=== PATIENT | female | born 2000 | race Caucasian/White ===

== ENCOUNTER 2022-10-28 20:48 | Emergency (ER) | payer OTHER ==
[~2022-10-28] VITALS: Ht 165.1 cm; Wt 50.3 kg
[2022-10-28 21:04] VITALS: BP 100/48
--- NOTE | 2022-10-28 21:23 | NUR ---
PT TO 11
--- NOTE | 2022-10-28 21:51 | NUR ---
Pt is here complaning for rectal pain. She said she been having constipation and she been told by dr from urgent care that she has hemmoroid. She was prescribed the lotion to help and she said she used it for 2 weeks and no longer use it. She has pain 8/.
--- NOTE | 2022-10-28 22:28 | NUR ---
Female [employer] accompanied female patient for Rectal Exam.
[2022-10-28] MEDS ORDERED: HYDR-2734 TP (22:38)
[2022-10-28 23:00] VITALS: BP 102/48
--- NOTE | 2022-10-28 23:00 | NUR ---
Patient discharged with v/s stable. Written and verbal after care instructions given and explained. Patient alert, oriented and verbalized understanding of instructions. Ambulatory with steady gait. All questions addressed prior to discharge. ID band removed. Patient advised to follow up with PMD. Rx of Hydrocortisone cream given. Patient educated on indication of medication including possible reaction and side effects. Opportunity to ask questions provided and answered.
== END 2022-10-28 23:00 | disposition home or self-care (01) ==
LOC: MED 20:48
DX: K64.4 Residual hemorrhoidal skin tags (principal)
CPT/HCPCS: 99282; 99283

== ENCOUNTER 2023-04-11 18:21 | Emergency (ER) | payer OTHER ==
[~2023-04-11] VITALS: Ht 165.1 cm; Wt 53.5 kg
[~2023-04-11 18:21] MED LIST: HYDR-2734 TP
[2023-04-11 18:44] VITALS: BP 97/46; PULSE 80; RESP 20; TEMP 97.8
--- NOTE | 2023-04-11 20:25 | NUR ---
PT AMBULATED TO BED 01.
--- NOTE | 2023-04-11 20:30 | NUR ---
SPOKE WITH PATIENT AT BEDSIDE WHO COMPLAINS OF PELVIC PAIN S/P SEXUAL INTERCOURSE ON FRIDAY. PATIENT DENIES VAGINAL BLEEDING, SWELLING, AND/OR TRAUMA. DENIES ANY PAST MEDICAL HISTORY DENIES ANY PRESCRIPTION MEDICATIONS
[2023-04-11] MEDS ORDERED: FLUC150T PO (21:13)
[2023-04-11] MEDS ORDERED: IBUP-2213 PO (21:13)
--- NOTE | 2023-04-11 21:34 | NUR ---
Patient discharged. Written and verbal after care instructions given and explained. Patient alert, oriented and verbalized understanding of instructions. Ambulatory with steady gait. All questions addressed prior to discharge. ID band removed. Patient advised to follow up with PMD. Rx of Diflucan and Ibuprofen given. Patient educated on indication of medication including possible reaction and side effects. Opportunity to ask questions provided and answered.
== END 2023-04-11 21:34 | disposition home or self-care (01) ==
LOC: MED 18:21
DX: R10.2 Pelvic and perineal pain (principal); Z79.899 Other long term (current) drug therapy
CPT/HCPCS: 81002; 81025; 99283

== ENCOUNTER 2023-05-02 23:15 | Emergency (ER) | payer OTHER ==
[~2023-05-02] VITALS: Ht 165.1 cm; Wt 53.5 kg
[~2023-05-02 23:15] MED LIST changes: +FLUC150T PO; +IBUP-2213 PO
[2023-05-02 23:19] VITALS: BP 120/55; PULSE 66; RESP 17; TEMP 98; O2SAT 99
--- NOTE | 2023-05-02 23:22 | NUR ---
TO LOBBY A/W BED AMBULATORY
--- NOTE | 2023-05-02 23:36 | NUR ---
URINE WALKED TO LAB.
[2023-05-02 23:38] LABS: APPEARANCE,URINE CLEAR (CLEAR); BILIRUBIN,URINE NEGATIVE (NEGATIVE); BLOOD, URINE NEGATIVE (NEGATIVE); COLOR,URINE YELLOW (YELLOW); LEUKOCYTE ESTERASE ,URINE NEGATIVE (NEGATIVE); NITRITE, URINE NEGATIVE (NEGATIVE); UGLUCOSE NEGATIVE (NEGATIVE)
[2023-05-03] MEDS ORDERED: IBUPROFEN 600 MG TAB PO ONE
[2023-05-03] MEDS ORDERED: IBUPROFEN 600 MG TAB ONE (01:08)
--- NOTE | 2023-05-03 03:27 | NUR ---
PATIENT ELOPED FROM FACILITY. DISCHARGE INSTRUCTIONS NOT GIVEN TO PATIENT. DR. DELEON NOTIFIED.
--- NOTE | 2023-05-03 03:27 | NUR ---
Note ashley in ED - 05/03/23 at 0340 by CORIE PER ADMITTING, PT LEFT WITHOUT BEING SEEN
== END 2023-05-03 03:27 | disposition left against medical advice (07) ==
LOC: MED 23:15
DX: N83.201 Unspecified ovarian cyst, right side (principal); Z79.899 Other long term (current) drug therapy; Z90.49 Acquired absence of other specified parts of digestive tract; Z98.890 Other specified postprocedural states
CPT/HCPCS: 76856; 81003; 81025; 93976; 99284; Q0092

== ENCOUNTER 2023-06-18 05:05 | Emergency (ER) | payer OTHER ==
[~2023-06-18] VITALS: Ht 165.1 cm; Wt 54.4 kg
[2023-06-18 05:11] VITALS: BP 96/52; PULSE 70; RESP 18; TEMP 97.8; O2SAT 99
[2023-06-18] MEDS ORDERED: NACL 0.9% 1,000 ML IV ONE (06:10)
[2023-06-18] MEDS ORDERED: KETOROLAC 30 MG/ML VIAL IVP ONE (06:35)
[2023-06-18 07:23] VITALS: O2SAT 99
[2023-06-18] MEDS ORDERED: IBUP-2213 PO (07:35)
[2023-06-18] MEDS ORDERED: ONDA8TAB87 PO (07:35)
[2023-06-18 07:47] VITALS: BP 110/61; PULSE 64; RESP 14; TEMP 97.9; O2SAT 100
== END 2023-06-18 07:47 | disposition home or self-care (01) ==
LOC: MED 05:05
DX: R10.9 Unspecified abdominal pain (principal); R11.2 Nausea with vomiting, unspecified; R19.7 Diarrhea, unspecified; K59.00 Constipation, unspecified; Z79.899 Other long term (current) drug therapy
CPT/HCPCS: 81002; 81025; 96361; 96374; 99283; J1885; J7030

== ENCOUNTER 2023-12-27 16:19 | Emergency (ER) | payer OTHER ==
[~2023-12-27] VITALS: Ht 165.1 cm; Wt 55.8 kg
[~2023-12-27 16:19] MED LIST changes: +ONDA8TAB87 PO
[2023-12-27 16:30] VITALS: BP 102/67; PULSE 70; RESP 16; TEMP 98; O2SAT 99
[2023-12-27] MEDS: IBUPROFEN 600 MG TAB PO ONE (17:49)
[2023-12-27] MEDS ORDERED: IBUP-2213 PO (19:06)
[2023-12-27 19:20] VITALS: BP 111/54; PULSE 75; RESP 16; TEMP 97.4; O2SAT 99
== END 2023-12-27 19:25 | disposition home or self-care (01) ==
LOC: MED 16:19
DX: R07.9 Chest pain, unspecified (principal); Z79.899 Other long term (current) drug therapy
CPT/HCPCS: 71045; 81025; 93005; 99283

== ENCOUNTER 2024-07-15 16:25 | Emergency (ER) | payer OTHER ==
[~2024-07-15] VITALS: Ht 165.1 cm; Wt 58.5 kg
[2024-07-15 16:46] VITALS: BP 117/74; PULSE 73; RESP 18; TEMP 97.3; O2SAT 96
[2024-07-15 17:03] LABS: APPEARANCE,URINE CLEAR (CLEAR); BILIRUBIN,URINE NEGATIVE (NEGATIVE); BLOOD, URINE 3+ (NEGATIVE); COLOR,URINE YELLOW (YELLOW); LEUKOCYTE ESTERASE ,URINE 1+ (NEGATIVE); NITRITE, URINE NEGATIVE (NEGATIVE); PROTEIN,URINE NEGATIVE (NEGATIVE); UGLUCOSE NEGATIVE (NEGATIVE); UROBILINOGEN,URINE 0.2 EU/dL (0.2 - 1)
[2024-07-15 17:09] LABS: BACTERIA,URINE 10-30 (MOD) /HPF (None Seen); SQUAMOUS EPITHELIAL CELL,UR 4-10 (MOD) /LPF (0-3 (FEW))
[2024-07-15 17:35] LABS: BASOPHILS % (AUTO) 0.7 % (0.0-2.0); EOSINOPHILS # (AUTO) 0.1 K/uL (0-0.4); HEMATOCRIT 41.5 % (36-48); HEMOGLOBIN 13.7 g/dL (12.0-16.0); LYMPHOCYTES # (AUTO) 1.3 K/uL (2.5-16.5); LYMPHOCYTES % (AUTO) 19.9 % (20.5-51.1); MEAN CORPUSCULAR HEMOGLOBIN 30 pg (27-31); MEAN CORPUSCULAR HGB CONC 33 g/dL (33-37); MEAN CORPUSCULAR VOLUME 92.2 fL (80-94); MONOCYTES # (AUTO) 0.4 K/uL (0.8-1.0); MONOCYTES % (AUTO) 5.4 % (1.7-9.3); NEUTROPHILS # (AUTO) 4.9 K/uL (1.8-7.7); PLATELET COUNT (AUTO) 182 K/uL (140-450); RED CELL DISTRIBUTION WIDTH 12.2 % (11.6-13.7); WHITE BLOOD COUNT (AUTO) 6.8 K/uL (4.8-10.8)
[2024-07-15] MEDS ORDERED: NITR100C7 PO (18:32)
[2024-07-15 18:50] VITALS: BP 126/70; PULSE 75; RESP 20; TEMP 97.1; O2SAT 96
== END 2024-07-15 18:49 | disposition home or self-care (01) ==
LOC: MED 16:25
DX: O03.9 Complete or unspecified spontaneous abortion without complication (principal); O23.91 Unspecified genitourinary tract infection in pregnancy, first trimester; R82.71 Bacteriuria; Z3A.01 Less than 8 weeks gestation of pregnancy; Z90.49 Acquired absence of other specified parts of digestive tract; Z98.890 Other specified postprocedural states; Z79.899 Other long term (current) drug therapy
CPT/HCPCS: 36415; 81001; 81025; 84702; 85025; 86900; 86901; 87086; 99283